=== PATIENT | male | born 1990 | race Caucasian/White ===

== ENCOUNTER 2023-02-21 13:47 | Emergency (ER) | payer SELFPAY ==
[~2023-02-21] VITALS: Ht 175.3 cm; Wt 72.0 kg
[~2023-02-21 13:47] MED LIST: (None)3.5 GM OP; BACTRIM DS1 TAB PO; CEPHALEXIN500 MG OR; DOXYCYCL HYC100 M4 PO; GENTAMICIN15 ML/BTL OP; KEFLEX250 MG OR; LORTAB 10 PO; LORTAB5 PO; METHADONE5 M1 OR; NAPROSYN500 MG PO; NAPROXEN500 MG PO; ROBAXIN250 MG PO; TAM75CAP PO
[2023-02-21 14:05] VITALS: BP 133/77
[2023-02-21] MEDS ORDERED: PREDNISONE50 MG PO (15:54)
[2023-02-21] MEDS ORDERED: VENTOLIN HFA108 MCG PO (15:54)
[2023-02-21] MEDS ORDERED: ZPAK PO (15:54)
[2023-02-21 16:07] VITALS: BP 128/70
== END 2023-02-21 16:20 | disposition home or self-care (01) | DRG 153 ==
LOC: ED 13:47
DX: J11.1 Influenza due to unidentified influenza virus with other respiratory manifestations (principal); Z20.822 Contact with and (suspected) exposure to COVID-19

== ENCOUNTER 2024-01-23 15:49 | Emergency (ER) | payer OTHER ==
[~2024-01-23] VITALS: Ht 175.3 cm; Wt 68.0 kg
[~2024-01-23 15:49] MED LIST changes: +CEPHALEXIN500 M1 PO; +HYDROCO/APAP1 TA9 PO; +PREDNISONE50 MG PO; +VENTOLIN HFA108 MCG PO; +ZPAK PO
[2024-01-23 16:32] VITALS: BP 128/86
[2024-01-23] MEDS ORDERED: KETOROLAC TROMETHAMINE 30 MG/ML SDV IM ONE (16:45)
[2024-01-23] MEDS ORDERED: DEXAMETHASONE SOD. PHOSPHATE 10 MG/ML VIAL IM ONE (16:45)
[2024-01-23 17:00] VITALS: BP 118/84
[2024-01-23] MEDS ORDERED: IBUPROFEN600 MG PO (18:03)
[2024-01-23] MEDS ORDERED: TYLENOL500 MG PO (18:03)
[2024-01-23 18:08] VITALS: BP 118/84
== END 2024-01-23 18:14 | disposition home or self-care (01) | DRG 563 ==
LOC: ED 15:49
DX: S52.612A Displaced fracture of left ulna styloid process, initial encounter for closed fracture (principal); X50.0XXA Overexertion from strenuous movement or load, initial encounter; Y93.I9 Activity, other involving external motion; Z72.0 Tobacco use